=== PATIENT | female | born 1965 | race Caucasian/White ===

== ENCOUNTER 2020-08-05 14:16 | Emergency (ER) | payer MEDICARE, MEDICAID ==
[2020-08-05 16:19] LABS: #Basophils 0.1 10x3/uL (0.0-0.2); #Eosinphils 0.1 10x3/uL (0.0-0.5); #Monocytes 0.7 10x3/uL (0.0-1.1); #Neutrophils 4.4 10x3/uL (1.5-8.4); %Basophils 0.8 % (0.0-2.0); %Eosinophils 1.2 % (0.0-6.0); %Lymphocytes 30.6 % (18.0-47.0); %Monocytes 8.9 % (0.0-10.0); Mean Corpuscular HGB CONC 33.3 g/dL (32.0-36.0); Mean Corpuscular Hemoglobin 30.4 pg (27.0-33.0); Mean Corpuscular Volume 91.3 fl (81.6-98.3); Platelet Count 304 10x3/uL (150-450); RBC Distribution Width 13.2 % (11.5-14.5); Red Blood Cell (RBC) Count 4.61 10x6/uL (3.90-5.03); White Blood Cell (WBC) Count 7.6 10x3/uL (3.5-10.5)
[2020-08-05 16:30] LABS: ALT (SGPT) 22 U/L (8-55); AST (SGOT) 17 U/L (5-34); Albumin 4.2 g/dL (3.5-5.0); Alkaline Phosphatase 119 U/L (40-110); Anion Gap 15 mmol/L (10-20); BUN (Urea Nitrogen) 14 mg/dL (9.8-20.1); Bilirubin, Total 0.2 mg/dL (0.2-1.2); Calc. Creatinine Clearance 0 mL/min (70-130); Calcium 9.2 mg/dL (7.8-10.44); Carbon Dioxide 25 mmol/L (22-29); Chloride 104 mmol/L (98-107); Globulin 3.1 g/dL (2.4-3.5); Glucose 122 mg/dL (70-105); Potassium 3.7 mmol/L (3.5-5.1); Protein, Total 7.3 g/dL (6.0-8.3); Sodium 140 mmol/L (136-145)
[2020-08-05] MEDS ORDERED: methylPREDNISolone Sod Succ/PF 125 MG/2 ML VIAL ONE (16:38)
[2020-08-05] MEDS ORDERED: Ketorolac Tromethamine 15 MG/ML VIAL ONE (16:39)
[2020-08-05] MEDS ORDERED: Metoclopramide HCl 10 MG/2 ML VIAL ONE (16:39)
[2020-08-05] MEDS ORDERED: diphenhydrAMINE 50 MG/ML VIAL ONE (16:39)
[2020-08-05] MEDS ORDERED: Ondansetron ODT 4 MG TAB ONE (19:20)
== END 2020-08-05 19:24 | disposition home or self-care (01) ==
LOC: CSHERS 14:16
DX: R51.9 Headache, unspecified (principal); R07.9 Chest pain, unspecified; E03.9 Hypothyroidism, unspecified; I10 Essential (primary) hypertension
CPT/HCPCS: 70450; 71045; 80053; 85025; 93005; 96365; 96375; J1200; J1885; J2765; J2930; Q0162

== ENCOUNTER 2020-11-30 15:51 | Outpatient (CLI) | payer MEDICARE, MEDICAID | END 2020-11-30 15:52 | disposition home or self-care (01) | LOC: CSHRAD 15:51 | PROVIDERS: ATTEND Physical Medicine & Rehabilitation | DX: M54.2 Cervicalgia (principal); M54.5 Low back pain; Z98.890 Other specified postprocedural states; M47.816 Spondylosis without myelopathy or radiculopathy, lumbar region | CPT/HCPCS: 72040; 72100 ==

== ENCOUNTER 2022-03-04 15:06 | Emergency (ER) | payer OTHER, MEDICAID ==
[2022-03-04 16:34] LABS: ALT (SGPT) 20 U/L (8-55); AST (SGOT) 22 U/L (5-34); Albumin 4.3 g/dL (3.5-5.0); Alkaline Phosphatase 91 U/L (40-110); Anion Gap 13 mmol/L (10-20); BUN (Urea Nitrogen) 8 mg/dL (9.8-20.1); Bilirubin, Total 0.2 mg/dL (0.2-1.2); Calc. Creatinine Clearance 0 mL/min (70-130); Calcium 9.8 mg/dL (7.8-10.44); Carbon Dioxide 30 mmol/L (22-29); Chloride 96 mmol/L (98-107); Estimated GFR 101; Glucose 90 mg/dL (70-105); Potassium 4.2 mmol/L (3.5-5.1); Protein, Total 7.3 g/dL (6.0-8.3); Sodium 135 mmol/L (136-145)
[2022-03-04 16:37] LABS: #Eosinphils 0.1 10x3/uL (0.0-0.5); #Monocytes 0.9 10x3/uL (0.0-1.1); #Neutrophils 4.3 10x3/uL (1.5-8.4); %Basophils 0.5 % (0.0-2.0); %Eosinophils 1.3 % (0.0-6.0); %Lymphocytes 29.8 % (18.0-47.0); %Monocytes 11.3 % (0.0-10.0); %Neutrophils 56.8 % (40.0-75.0); Hemoglobin 12.7 g/dL (12.0-15.5); Mean Corpuscular Hemoglobin 30.5 pg (27.0-33.0); Mean Corpuscular Volume 89.9 fl (81.6-98.3); Mean Platelet Volume 9.4 fl (7.4-10.4); Platelet Count 256 10x3/uL (150-450); RBC Distribution Width 12.8 % (11.5-14.5); Red Blood Cell (RBC) Count 4.16 10x6/uL (3.90-5.03); White Blood Cell (WBC) Count 7.5 10x3/uL (3.5-10.5)
== END 2022-03-04 17:30 | disposition home or self-care (01) ==
LOC: CSHERS 15:06
DX: J20.9 Acute bronchitis, unspecified (principal); E03.9 Hypothyroidism, unspecified; I10 Essential (primary) hypertension; F17.210 Nicotine dependence, cigarettes, uncomplicated
CPT/HCPCS: 36415; 71045; 80053; 84484; 85025; 85379; 93005

== ENCOUNTER 2022-08-07 17:00 | Emergency (ER) | payer OTHER, MEDICAID ==
[~2022-08-07 17:00] MED LIST: Iopamidol 370 76% 100 ML VIAL ONE
[2022-08-07 18:04] LABS: #Basophils 0.1 10x3/uL (0.0-0.2); #Eosinphils 0.1 10x3/uL (0.0-0.5); #Monocytes 0.9 10x3/uL (0.0-1.1); #Neutrophils 4.9 10x3/uL (1.5-8.4); %Basophils 0.7 % (0.0-2.0); %Eosinophils 0.9 % (0.0-6.0); %Lymphocytes 28.1 % (18.0-47.0); %Monocytes 10.4 % (0.0-10.0); %Neutrophils 59.5 % (40.0-75.0); Hemoglobin 13.8 g/dL (12.0-15.5); Mean Corpuscular Hemoglobin 29.6 pg (27.0-33.0); Mean Corpuscular Volume 89.5 fl (81.6-98.3); Platelet Count 267 10x3/uL (150-450); RBC Distribution Width 13.4 % (11.5-14.5); Red Blood Cell (RBC) Count 4.67 10x6/uL (3.90-5.03); White Blood Cell (WBC) Count 8.2 10x3/uL (3.5-10.5)
[2022-08-07 18:13] LABS: ALT (SGPT) 22 U/L (8-55); AST (SGOT) 27 U/L (5-34); Albumin 4.7 g/dL (3.5-5.0); Alkaline Phosphatase 89 U/L (40-110); Anion Gap 13 mmol/L (10-20); BUN (Urea Nitrogen) 16 mg/dL (9.8-20.1); Bilirubin, Total 0.5 mg/dL (0.2-1.2); Calc. Creatinine Clearance 0 mL/min (70-130); Calcium 9.4 mg/dL (7.8-10.44); Carbon Dioxide 26 mmol/L (22-29); Chloride 105 mmol/L (98-107); Estimated GFR 97; Globulin 2.8 g/dL (2.4-3.5); Glucose 75 mg/dL (70-105); Lipase 16 U/L (8-78); Potassium 4.1 mmol/L (3.5-5.1); Protein, Total 7.5 g/dL (6.0-8.3); Sodium 140 mmol/L (136-145)
[2022-08-07] MEDS ORDERED: Morphine 4 MG/ML VIAL ONE (18:35)
== END 2022-08-07 19:09 | disposition home or self-care (01) ==
LOC: CSHERS 17:00
DX: S22.32XA Fracture of one rib, left side, initial encounter for closed fracture (principal); E03.9 Hypothyroidism, unspecified; I10 Essential (primary) hypertension; X58.XXXA Exposure to other specified factors, initial encounter
CPT/HCPCS: 36415; 71275; 80053; 83690; 83880; 84484; 85025; 93005; 96374; J2270; Q9967

== ENCOUNTER 2022-08-16 15:04 | Outpatient (CLI) | payer OTHER, MEDICAID | END 2022-08-16 15:05 | disposition home or self-care (01) | LOC: CSHRAD 15:04 | PROVIDERS: ATTEND Physical Medicine & Rehabilitation | DX: M75.51 Bursitis of right shoulder (principal); M75.52 Bursitis of left shoulder; M19.011 Primary osteoarthritis, right shoulder ==

== ENCOUNTER 2022-10-13 10:16 | Outpatient (CLI) | payer OTHER, MEDICAID | END 2022-10-13 10:17 | disposition home or self-care (01) | LOC: CSHRAD 10:16 | PROVIDERS: ATTEND Physical Medicine & Rehabilitation | DX: R07.82 Intercostal pain (principal) ==

== ENCOUNTER 2023-01-05 15:18 | Outpatient (CLI) | payer OTHER, MEDICAID | END 2023-01-05 15:19 | disposition home or self-care (01) | LOC: CSHRAD 15:18 | PROVIDERS: ATTEND Physical Medicine & Rehabilitation | DX: M47.26 Other spondylosis with radiculopathy, lumbar region (principal); Z98.890 Other specified postprocedural states | CPT/HCPCS: 72100 ==

== ENCOUNTER 2024-02-21 15:20 | Outpatient (CLI) | payer MEDICARE, MEDICAID | END 2024-02-21 15:21 | disposition home or self-care (01) | LOC: CSHRAD 15:20 | PROVIDERS: ATTEND Physical Medicine & Rehabilitation | DX: M25.532 Pain in left wrist (principal); M79.642 Pain in left hand; M18.9 Osteoarthritis of first carpometacarpal joint, unspecified ==